=== PATIENT | female | born 1955 | race Caucasian/White ===

== ENCOUNTER 2018-04-28 01:15 | Outpatient (CLI) | payer BC, SELFPAY ==
--- NOTE | 2018-04-28 07:21 | DI.RAD_ITS ---
SYMPTOM/DIAGNOSIS: LT KNEE PAIN, M25.562 LEFT KNEE: Medial tibiofemoral joint space narrowing is demonstrated. There is articular sclerosis and mild periarticular hypertrophic spurring. These degenerative changes have progressed when compared with the prior study of 04/05/13. SUMMARY: There are moderately severe degenerative changes with interval progression when compared with the previous study of 04/05/13.
[2018-04-28 08:48] LABS: Anion Gap 11.2 mmol/L (3-11); BUN 19 mg/dL (7-18); CO2 27.8 mmol/L (21.0-32.0); CREATININE 1.15 mg/dL (0.55-1.02); Calcium 9.2 mg/dL (8.5-10.1); Chloride 102 mmol/L (98-107); Estimated GFR 47.51 (mL/min/1.73m2); Glucose 115 mg/dL (70-100); Potassium 4.6 mmol/L (3.5-5.1); Sodium 141 mmol/L (136-145); TSH (W/Ref FT4) 7.06 uIU/mL (0.358-3.74)
[2018-04-28 14:30] LABS: Cholesterol 151 mg/dL (50-200); HDL Cholesterol 41 mg/dL (40-60); Triglyceride 142 mg/dL (30-150)
[2018-04-28 14:42] LABS: LDL CHOLESTEROL 96 mg/dL (<100)
== END 2018-04-28 01:35 ==
PROVIDERS: PCP Internal Medicine; Visit Provider Internal Medicine
DX: M25.562 Pain in left knee (principal); M17.12 Unilateral primary osteoarthritis, left knee; E78.5 Hyperlipidemia, unspecified; I10 Essential (primary) hypertension; R73.01 Impaired fasting glucose
CPT/HCPCS: 36415; 73562; 80048; 80061; 83721; 84439; 84443

== ENCOUNTER 2018-05-10 10:32 | Outpatient (CLI) | payer BC, SELFPAY ==
--- NOTE | 2018-05-10 10:24 | DI.RAD_ITS ---
SYMPTOMS/DIAGNOSIS: OA LEFT KNEE: Single AP upright view of the left knee was obtained. Comparison is 04/28/18. There is again seen marked narrowing of the medial joint compartment. Prominent osteophytes are seen arising from the medial femoral tibial joint. The lateral joint space appears well maintained. The bones appear normal aligned. The soft tissues are unremarkable. IMPRESSION: Marked osteoarthritis involving the medial femoral tibial joint space.
== END 2018-05-10 10:52 ==
PROVIDERS: PCP Internal Medicine; Visit Provider Physician Assistant Surgical
DX: M17.12 Unilateral primary osteoarthritis, left knee (principal)
CPT/HCPCS: 73560

== ENCOUNTER 2018-06-21 13:31 | Outpatient (CLI) | payer MEDICARE, BC, SELFPAY ==
--- NOTE | 2018-06-21 12:26 | DI.RAD_ITS ---
SYMPTOMS/DIAGNOSIS: DORSALGIA S/P FALL, M54.9 LUMBAR SPINE: There is mild compression of the superior endplate of T1. The remaining vertebral bodies are well maintained. There are degenerative disc changes at L4 -5 and L5-S1, as well as facet degenerative changes throughout, greatest at L4- 5 and L5-S1. No spondylolysis, spondylolisthesis or scoliosis is seen. IMPRESSION: Mild L1 compression fracture. Degenerative disc changes and facet degenerative changes in the lower lumbar spine.
== END 2018-06-21 13:51 ==
PROVIDERS: PCP Internal Medicine; Visit Provider Internal Medicine
DX: M54.5 Low back pain (principal); M48.56XD Collapsed vertebra, not elsewhere classified, lumbar region, subsequent encounter for fracture with routine healing; M51.37 Other intervertebral disc degeneration, lumbosacral region
CPT/HCPCS: 72110

== ENCOUNTER 2018-07-10 02:41 | Emergency (ER) | payer MEDICARE, BC, SELFPAY ==
[2018-07-10] VITALS (25 sets, daily range): BP systolic 141–252; BP diastolic 90–239; PULSE 44–152; RESP 14–27; TEMP 36.5–36.6; O2SAT 91–100
[2018-07-10] MEDS: Normal Saline 1,000 ML 1000 ML IV (02:30)
--- NOTE | 2018-07-10 02:38 | W.ED.GENAD ---
Discharge Plan Disposition Patient Disposition: RAS NAJERA ([facility]) Condition: Stable Discharge Details Chief Complaint: CVA/TIA Clinical Impression: Acute cerebrovascular accident Reason For Visit: TIESHA Primary Care Provider: Justine Gil ED Provider: Sharath Pineda Home Meds and New Rx's Prescriptions: No Action levothyroxine 50 mcg capsule 50 mcg PO DAILY Qty: 90 RF: 3 calcium carbonate-vitamin D3 1 EACH tablet 1 ea PO DAILY RF: 0 aspirin [Aspirin Low-Strength] 81 MG tablet,chewable 81 mg PO DAILY RF: 0 meloxicam [Mobic] 15 mg tablet 15 mg PO DAILY RF: 0 atorvastatin 40 mg tablet 40 mg PO DAILY Qty: 90 RF: 3 lisinopril 20 mg tablet 20 mg PO DAILY Qty: 90 RF: 3 Medical Decision Making 63 yo female with hx of htn and hld comes in with ems after she woke up after going to bed around 12pm per ems with weakness and garbled speech. On arrival she is noted to have an NIH of 12 (arouses to minor stimulation 1, partial gaze palsy 1, unilateral complete paralysis upper/lower face with left sided facial droop 3, left arm motor drift some effort against gravity 2, left leg motor drift some effort against gravity 2, mild to moderate loss of sensation on the left side 1, dysarthria 2). She does know her name and month, has mild headache and nausea but otherwise denies chest pain or sob. Will obtain CT head, lab work and monitor, suspect acute cva given symptoms pt remains stable upon return from ct, ekg showing afib. states she was her normal self at 1230 when she got into bed and she woke him up as she was tapping with her right arm. CT shows no acute findings, awaiting lab work but pt and would like her to get tpa if she meets criteria. pt's bp has been elevated above 200 systolic on multiple reads so labetalol ordered and pt also noted to thrash her right side of her body despite multiple attempts to calm her so lorazepam ordered. IF BP not able to get under control will not be able to safely give lytics pt's bp finally stabilized to 160/80, no contraindications to lytics and she and consent to the tpa. Spoke with Dr. Perez from neurology at [facility] [place] who agrees with giving lytics. They are short on beds there and can't accept transfer unless she has thrombectomy lesion, so will obtain CTA pt unfortunately moved during the cta so had limited study, remains hd stable, some bp readings over 200 but this is when she is thrashing her right arm around, when it is held still her bp is still 160's systolic and 80's diastolic. awaiting radiology read rad read states no acute findings though limited study. Pt remains stable. [facility] [place] bed availability for transfer, will try [facility] Spoke with neurology at [facility] Dr. Parham who accepts pt in transfer, will try and send by helicopter and if not flying send by [place]. PT remains hd stable Differential Diagnosis cva, sah, dissection Imaging Data Radiologic Study: Imaging: CT Scan Radiologist's impression: no acute findings Radiologic Study #2: Attestation: I personally reviewed and interpreted this imaging study as follows: Imaging: CT Scan Radiologist's impression: no acute findings on neck/brain cta though limited study Lab Data Lab results reviewed: Yes I reviewed the patient's lab results. ECG Data Attestation: I personally reviewed and interpreted this ECG (s) as follows: Prior ECG tracings: not available for review Interpretation: afib rate of 94, no acute st t wave ischmic findings HPI General Mode of arrival: EMS. Date/Time Provider Initiated Documentation: 07/10/18 02:43. Limitations to Documentation: other (dysarthria). Information obtained by: patient and EMS. History of Present Illness 63 year old F presents to the emergency department with the chief complaint of weakness, described as moderate, Patient started experiencing this hour(s) (2) and it has been constant. No relieving factors improve symptom(s), No exacerbating factors reported . Patient did receive the following treatments prior to arrival, none Related Data Home Medications Medication Instructions Recorded Confirmed calcium carbonate-vitamin D3 1 ea PO DAILY 11/02/12 06/21/18 aspirin [Aspirin Low-Strength] 81 mg PO DAILY tab-cap 03/27/13 06/21/18 meloxicam 15 mg tablet 15 mg PO DAILY 05/10/18 06/21/18 levothyroxine 50 mcg capsule 50 mcg PO DAILY #90 tab-cap 06/08/18 06/21/18 atorvastatin 40 mg tablet 40 mg PO DAILY #90 tab-cap 06/28/18 lisinopril 20 mg tablet 20 mg PO DAILY #90 tab-cap 06/28/18 Previous Rx's Medication Instructions Recorded levothyroxine 50 mcg capsule 50 mcg PO DAILY #90 tab-cap 06/08/18 atorvastatin 40 mg tablet 40 mg PO DAILY #90 tab-cap 06/28/18 lisinopril 20 mg tablet 20 mg PO DAILY #90 tab-cap 06/28/18 Allergies Allergy/AdvReac Type Severity Reaction Status Date / Time NSAIDS (Non-Steroidal Allergy Intermediate Hives Verified 06/21/18 11:29 Anti-Inflamma ibuprofen [From Advil] AdvReac Intermediate Swelling/Ed Verified 06/21/18 11:29 sherrill Review of Systems Review of Systems All systems reviewed & are unremarkable except as noted in HPI and below Constitutional Denies chills and Denies fever(s) Eyes Denies loss of vision Cardiovascular Denies chest pain Gastrointestinal Denies nausea and Denies vomiting Genitourinary Denies dysuria Integumentary/Breasts Denies rash Neurologic Denies loss of vision Endocrine Denies heat intolerance Allergic/Immunologic Denies urticaria PFSH Medical History Arthritis Essential hypertension Hyperlipidemia Obesity Varicose vein of leg Surgical History Colonoscopy - IV Sedation Social History adopted: No foster care: No household members: spouse and children number of children: 2 group home: No current occupational status: retired Smoking/Tobacco Use Status: Never alcohol intake: current alcohol intake frequency: holidays/special occasions only substance use type: does not use special jonathan needs: Yes ([place]) seatbelt use: always 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 water heater temp set < 120 deg: Yes working smoke detector in home: Yes fire extinguisher in home: Yes carbon monox detector in home: Yes Exam Const General: well developed Orientation: alert HENMT Head: normal to inspection Ears: external ears normal General nose exam: external nose normal Mouth: moist mucous membranes Eyes General: appearance normal, both eyes and all related structures Neck Neck: normal visual inspection Resp Effort & Inspection: normal respiratory effort and able to speak in complete sentences Cardio Rate: regular rate Skin General skin exam: no rashes or lesions noted Neuro General: alert and oriented x3 Extrem General: normal to inspection Psych Mental Status: mental status grossly normal Critical Care Time Critical Care Time: Yes Total Critical Care Time: 90 Attestation: time spent reviewing labs, administering labetalol for severe htn, ekg review and frequent reassessments in patient with acute cva and potential to deteriorate at any time
--- NOTE | 2018-07-10 02:43 | DI.CT_ITS ---
SYMPTOMS/DIAGNOSIS: LT SIDED HEMIPARESIS, STROKE SYMPTOMS NONCONTRAST HEAD CT: The exam is limited by patient motion. No intracranial hemorrhage, mass or infarct is seen. The ventricles are normal in size. There is no evidence of fracture or sinus opacification. IMPRESSION: Limited exam. No acute abnormality. CTA OF THE HEAD AND NECK: CT angiography was performed with multi slice acquisition and multi planar and 3D reconstruction. The exam is limited by patient motion. The contrast bolus is quite limited. No significant carotid or vertebral artery stenosis is seen. The [place] vasculature is grossly normal. IMPRESSION: Limited exam due to suboptimal contrast bolus. No evidence of vascular occlusion or gross evidence of stenosis.
--- NOTE | 2018-07-10 02:59 | ED.GENADUL_ITS ---
Discharge Plan Disposition Patient Disposition: RAS NAJERA ([facility]) Condition: Stable Discharge Details Chief Complaint: CVA/TIA Clinical Impression: Acute cerebrovascular accident Reason For Visit: TIESHA Primary Care Provider: Justine Gil ED Provider: Sharath Pineda Home Meds and New Rx's Prescriptions: No Action levothyroxine 50 mcg capsule 50 mcg PO DAILY Qty: 90 RF: 3 calcium carbonate-vitamin D3 1 EACH tablet 1 ea PO DAILY RF: 0 aspirin [Aspirin Low-Strength] 81 MG tablet,chewable 81 mg PO DAILY RF: 0 meloxicam [Mobic] 15 mg tablet 15 mg PO DAILY RF: 0 atorvastatin 40 mg tablet 40 mg PO DAILY Qty: 90 RF: 3 lisinopril 20 mg tablet 20 mg PO DAILY Qty: 90 RF: 3 Medical Decision Making 63 yo female with hx of htn and hld comes in with ems after she woke up after going to bed around 12pm per ems with weakness and garbled speech. On arrival she is noted to have an NIH of 12 (arouses to minor stimulation 1, partial gaze palsy 1, unilateral complete paralysis upper/lower face with left sided facial droop 3, left arm motor drift some effort against gravity 2, left leg motor drift some effort against gravity 2, mild to moderate loss of sensation on the left side 1, dysarthria 2). She does know her name and month, has mild headache and nausea but otherwise denies chest pain or sob. Will obtain CT head, lab work and monitor, suspect acute cva given symptoms pt remains stable upon return from ct, ekg showing afib. states she was her normal self at 1230 when she got into bed and she woke him up as she was tapping with her right arm. CT shows no acute findings, awaiting lab work but pt and would like her to get tpa if she meets criteria. pt's bp has been elevated above 200 systolic on multiple reads so labetalol ordered and pt also noted to thrash her right side of her body despite multiple attempts to calm her so lorazepam ordered. IF BP not able to get under control will not be able to safely give lytics pt's bp finally stabilized to 160/80, no contraindications to lytics and she and consent to the tpa. Spoke with Dr. Perez from neurology at [facility] [place] who agrees with giving lytics. They are short on beds there and can't accept transfer unless she has thrombectomy lesion, so will obtain CTA pt unfortunately moved during the cta so had limited study, remains hd stable, some bp readings over 200 but this is when she is thrashing her right arm around, when it is held still her bp is still 160's systolic and 80's diastolic. awaiting radiology read rad read states no acute findings though limited study. Pt remains stable. [facility] for [place], will try [facility] Spoke with neurology at [facility] Dr. Parham who accepts pt in transfer, will try and send by helicopter and if not flying send by [place]. PT remains hd stable Differential Diagnosis cva, sah, dissection Imaging Data Radiologic Study: Imaging: CT Scan Radiologist's impression: no acute findings Radiologic Study #2: Attestation: I personally reviewed and interpreted this imaging study as follows: Imaging: CT Scan Radiologist's impression: no acute findings on neck/brain cta though limited study Lab Data Lab results reviewed: Yes I reviewed the patient's lab results. ECG Data Attestation: I personally reviewed and interpreted this ECG (s) as follows: Prior ECG tracings: not available for review Interpretation: afib rate of 94, no acute st t wave ischmic findings HPI General Mode of arrival: EMS . Date/Time Provider Initiated Documentation: 07/10/18 02:43 . Limitations to Documentation: other (dysarthria) . Information obtained by: patient and EMS . History of Present Illness 63 year old F presents to the emergency department with the chief complaint of weakness, described as moderate, Patient started experiencing this hour(s) (2) and it has been constant. No relieving factors improve symptom(s), No exacerbating factors reported . Patient did receive the following treatments prior to arrival, none Related Data Home Medications Medication Instructions Recorded Confirmed calcium carbonate-vitamin D3 1 ea PO DAILY 11/02/12 06/21/18 aspirin [Aspirin Low-Strength] 81 mg PO DAILY tab-cap 03/27/13 06/21/18 meloxicam 15 mg tablet 15 mg PO DAILY 05/10/18 06/21/18 levothyroxine 50 mcg capsule 50 mcg PO DAILY #90 tab-cap 06/08/18 06/21/18 atorvastatin 40 mg tablet 40 mg PO DAILY #90 tab-cap 06/28/18 lisinopril 20 mg tablet 20 mg PO DAILY #90 tab-cap 06/28/18 Previous Rx's Medication Instructions Recorded levothyroxine 50 mcg capsule 50 mcg PO DAILY #90 tab-cap 06/08/18 atorvastatin 40 mg tablet 40 mg PO DAILY #90 tab-cap 06/28/18 lisinopril 20 mg tablet 20 mg PO DAILY #90 tab-cap 06/28/18 Allergies Allergy/AdvReac Type Severity Reaction Status Date / Time NSAIDS (Non-Steroidal Allergy Intermediate Hives Verified 06/21/18 11:29 Anti-Inflamma ibuprofen [From Advil] AdvReac Intermediate Swelling/Ed Verified 06/21/18 11:29 sherrill Review of Systems Review of Systems All systems reviewed & are unremarkable except as noted in HPI and below Constitutional Denies chills and Denies fever(s) Eyes Denies loss of vision Cardiovascular Denies chest pain Gastrointestinal Denies nausea and Denies vomiting Genitourinary Denies dysuria Integumentary/Breasts Denies rash Neurologic Denies loss of vision Endocrine Denies heat intolerance Allergic/Immunologic Denies urticaria PFSH Medical History Arthritis Essential hypertension Hyperlipidemia Obesity Varicose vein of leg Surgical History Colonoscopy - IV Sedation Social History adopted: No foster care: No household members: spouse and children number of children: 2 jail: No current occupational status: retired Smoking/Tobacco Use Status: Never alcohol intake: current alcohol intake frequency: holidays/special occasions only substance use type: does not use special jonathan needs: Yes ([place]) seatbelt use: always drive intox or ride w/ 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 water heater temp set < 120 deg: Yes working smoke detector in home: Yes fire extinguisher in home: Yes carbon monox detector in home: Yes Exam Const General: well developed Orientation: alert HENMT Head: normal to inspection Ears: external ears normal General nose exam: external nose normal Mouth: moist mucous membranes Eyes General: appearance normal, both eyes and all related structures Neck Neck: normal visual inspection Resp Effort & Inspection: normal respiratory effort and able to speak in complete sentences Cardio Rate: regular rate Skin General skin exam: no rashes or lesions noted Neuro General: alert and oriented x3 Extrem General: normal to inspection Psych Mental Status: mental status grossly normal Critical Care Time Critical Care Time: Yes Total Critical Care Time: 90 Attestation: time spent reviewing labs, administering labetalol for severe htn, ekg review and frequent reassessments in patient with acute cva and potential to deteriorate at any time
[2018-07-10] MEDS: Ondansetron 4 MG/2 ML VIAL IVP (03:00)
--- NOTE | 2018-07-10 03:09 | DI.VRAD_ITS ---
EXAM: CT Head Without Contrast EXAM DATE/TIME: 07/10/2018 2:44 AM CLINICAL HISTORY: 63 years old, female; Pain; Other: Left sided weakness; Patient HX: Stroke symptoms TECHNIQUE: Axial computed tomography images of the head/brain without contrast. Coronal and sagittal reformatted images were created and reviewed. STROKE PROTOCOL was implemented. COMPARISON: No relevant prior studies available. FINDINGS: Brain: No evidence for acute territorial infarct. No hemorrhage. No significant white matter disease. No edema. Ventricles: No hydrocephalus. Bones/joints: No acute fracture. Sinuses: No significant abnormality. Mastoid air cells: No mastoid effusion. Soft tissues: No acute abnormality. IMPRESSION: No acute intracranial abnormality. Dictated and Authenticated by: Luke Archer MD. Ordering:LAURIE Early MD
[2018-07-10 03:21] LABS: Lactate-non-spesis 2.1 mmol/L (0.6-1.4)
[2018-07-10] MEDS: LORazepam 2 MG/ML VIAL IVP (03:22)
[2018-07-10] MEDS: Labetalol 100 MG/20 ML VIAL (03:25)
[2018-07-10 03:37] LABS: Abs Immature Grans 0.03 k/cumm (0.0-0.09); Absolute Basophil Count 0.07 k/cumm (0.0-0.2); Absolute Eosinophil Count 0.36 k/cumm (0.0-0.7); Absolute Lymphocyte Count 3.44 k/cumm (1.2-3.4); Absolute Monocyte Count 1.01 k/cumm (0.11-0.7); Absolute Neutrophil Count 6.02 k/cumm (1.2-6.7); Basophils % 0.6; Eosinophils % 3.3; HCT 46.2 % (36.0-46.0); HGB 14.9 g/dL (12.0-15.5); Immature Grans % 0.3; Lymphocytes % 31.5; Mean Corp. HGB Concentration 32.3 g/dL (32.0-36.0); Mean Corpuscular Volume 89.9 fL (80-95); Mean Platelet Volume 10.6 fL (8.0-11.0); Monocytes % 9.2; Neutrophils % 55.1; Platelet Count 242 x1000/uL (130-400); RBC 5.14 m/cumm (4.00-5.20); RBC Distribution Width 14.6 % (11.7-14.6); White Blood Cell Count 10.93 k/cumm (4.4-10.8)
[2018-07-10 03:38] LABS: INR 0.9 (1.0-3.5); PTT Activated 20.8 sec (21.0-31.4); Prothrombin Time 9.3 sec (9.3-11.0)
[2018-07-10 03:39] LABS: ALT 36 U/L (12-78); AST 21 U/L (15-37); Albumin 3.6 g/dL (3.4-5.0); Alkaline Phosphatase 128 U/L (46-116); Bilirubin, Total 0.4 mg/dL (0.2-1.0); Lipase 218 U/L (73-393); Magnesium 1.9 mg/dL (1.8-2.4); Salicylate < 2.8 mg/dL (2.8-20.0); Total Protein 7.7 g/dL (6.4-8.2)
[2018-07-10 03:40] LABS: ETHANOL BLOOD < 3.0 mg/dL (<3)
[2018-07-10 03:41] LABS: ALT 35 U/L (12-78); AST 21 U/L (15-37); Albumin 3.6 g/dL (3.4-5.0); Alkaline Phosphatase 130 U/L (46-116); Anion Gap 9.2 mmol/L (3-11); BUN 31 mg/dL (7-18); Bilirubin, Total 0.4 mg/dL (0.2-1.0); CO2 28.8 mmol/L (21.0-32.0); CREATININE 1.12 mg/dL (0.55-1.02); Calcium 9.4 mg/dL (8.5-10.1); Chloride 102 mmol/L (98-107); Estimated GFR 48.82 (mL/min/1.73m2); Glucose 151 mg/dL (70-100); Potassium 4.5 mmol/L (3.5-5.1); Sodium 140 mmol/L (136-145); Total Protein 7.6 g/dL (6.4-8.2)
[2018-07-10 03:46] LABS: Acetaminophen < 2 ug/mL (10-30); Troponin I 0.16 ng/mL (0.00-0.06)
[2018-07-10] MEDS: ALTEPLASE 90 MG in WATER FOR INJECTION,STERILE 100 ML IV (03:55)
--- NOTE | 2018-07-10 05:03 | DI.VRAD_ITS ---
EXAM: CT Angiography Head With Contrast EXAM DATE/TIME: 07/10/2018 4:00 AM CLINICAL HISTORY: 63 years old, female; Pain; Other: Left sided hemiparesis; Additional info: PT was scanned 2 times - first time PT not cooperative - not able to get a reading for delay for contrast. Scanned a second time - delay was not enough - again PT not cooperative. Made educated choice on delay - was not able to catch contrast at correct timing. TECHNIQUE: Axial computed tomographic angiography images of the head with intravenous contrast using CT angiography protocol. All CT scans at this facility use at least one of these dose optimization techniques: automated exposure control; mA and/or kV adjustment per patient size (includes targeted exams where dose is matched to clinical indication); or iterative reconstruction. 3D reconstructed images were created and reviewed. CONTRAST: 70 ml of omni 350 administered intravenously. COMPARISON: CT Private^HEAD ROUTINE (Adult) 07/10/2018 2:46 AM FINDINGS: Right internal carotid artery: Intracranial segment is patent with no significant stenosis. No aneurysm. Right anterior cerebral artery: No occlusion or significant stenosis. No aneurysm. Right middle cerebral artery: No occlusion or significant stenosis. No aneurysm. Right posterior cerebral artery: No occlusion or significant stenosis. No aneurysm. Right vertebral artery: No occlusion or significant stenosis. No aneurysm. Left internal carotid artery: Intracranial segment is patent with no significant stenosis. No aneurysm. Left anterior cerebral artery: No occlusion or significant stenosis. No aneurysm. Left middle cerebral artery: No occlusion or significant stenosis. No aneurysm. Left posterior cerebral artery: No occlusion or significant stenosis. No aneurysm. Left vertebral artery: No occlusion or significant stenosis. No aneurysm. Basilar artery: No occlusion or significant stenosis. No aneurysm. Other: Limited contrast bolus. See above history IMPRESSION: 1: No definite acute findings. 2: Limited contrast bolus. See above history EXAM: CT Angiography Neck With Contrast EXAM DATE/TIME: 07/10/2018 4:00 AM CLINICAL HISTORY: 63 years old, female; Pain; Other: Left sided hemiparesis; Additional info: PT was scanned 2 times - first time PT not cooperative - not able to get a reading for delay for contrast. Scanned a second time - delay was not enough - again PT not cooperative. Made educated choice on delay - was not able to catch contrast at correct timing. TECHNIQUE: Axial computed tomographic angiography images of the neck with intravenous contrast using CT angiography protocol. All CT scans at this facility use at least one of these dose optimization techniques: automated exposure control; mA and/or kV adjustment per patient size (includes targeted exams where dose is matched to clinical indication); or iterative reconstruction. 3D reconstructed images were created and reviewed. CONTRAST: 70 ml of OMNI 350 administered intravenously. COMPARISON: CT Private^HEAD ROUTINE (Adult) 07/10/2018 2:46 AM FINDINGS: VASCULATURE: Right common carotid artery: No significant stenosis. No dissection or occlusion. Right internal carotid artery: Extracranial segment is patent with no significant stenosis. No dissection or occlusion. Right external carotid artery: No occlusion or significant stenosis. Right vertebral artery: No significant stenosis. No dissection or occlusion. Left common carotid artery: No significant stenosis. No dissection or occlusion. Left internal carotid artery: Extracranial segment is patent with no significant stenosis. No dissection or occlusion. Left external carotid artery: No occlusion or significant stenosis. Left vertebral artery: No significant stenosis. No dissection or occlusion. Other: medial course of bilateral carotid vessels in the prevertebral space Other: Limited contrast bolus. See above history NECK: Bones/joints: No acute fracture. Soft tissues: No significant soft tissue swelling. IMPRESSION: 1: No definite acute findings. 2: Limited contrast bolus. See above history Dictated and Authenticated by: Luke Archer MD. Ordering:LAURIE Early MD
[2018-07-10] MEDS: Normal Saline Flush 10 ML SYR IVP (05:07)
[2018-07-10 05:35] LABS: Bilirubin Negative (Negative); Blood Trace-intact (Negative); Clarity Clear; Glucose Negative (Negative); Ketones Negative (Negative); Leukocyte Esterase Negative (Negative); Nitrite Negative (Negative); Urobilinogen 0.2 EU/dL (Up TO 0.2)
[2018-07-10 05:46] LABS: Bacteria Negative HPF (Negative); C & S Indicated? No; Casts Negative LPF (Negative); Crystals Negative HPF (Negative); Epithelial Cells Rare HPF (Negative); Mucus Negative (Negative); RBC Negative (0-2); WBC 0-2 HPF (0-5)
[2018-07-10] MEDS: Labetalol 100 MG/20 ML VIAL 10 MG IVP (06:24)
[2018-07-10] MEDS: Omnipaque 350 MG/ML 100 ML BTL IJ (06:55)
== END 2018-07-10 06:22 | disposition short-term general hospital (02) ==
PROVIDERS: Emergency Provider Emergency Medicine; PCP Internal Medicine
DX: I63.9 Cerebral infarction, unspecified (principal); R29.712 NIHSS score 12; I48.91 Unspecified atrial fibrillation; I10 Essential (primary) hypertension
CPT/HCPCS: 51702; 70496; 70498; 80053; 80076; 83690; 93005; 96361; 96365; 96375; 96376; 99291; 99292; 70450; 80320; 80329; 81003; 81015; 83605; 83735; 84484; 85025; 85610; 85730; 93010; J2060; J2997; J3490